=== PATIENT | female | born 1965 | race Caucasian/White ===

== ENCOUNTER 2020-09-04 13:10 | Outpatient (CLI) | payer OTHER, SELFPAY ==
--- NOTE | ~2020-09-04 | XR_ITS ---
EXAMINATION: XR foot RT min 3V DATE: 09/04/2020 13:30 INDICATION: Nontraumatic right foot pain TECHNIQUE: Standing dorsoplantar, two oblique and lateral views of the right foot were obtained. COMPARISON: None. FINDINGS: Mild hallux valgus with bunion with mild hypertrophic change at the medial head of the first metatars al. Mild pes planus with flattening of the longitudinal arch and mild hindfoot valgus. No fracture. M ild osteoarthritis at the first metatarsophalangeal and a few interphalangeal joints.. IMPRESSION: 1. Mild pes planus and mild hindfoot valgus. 2. Mild hallux valgus with bunion and mild osteoarthritis at the first metatarsophalangeal joint. Reviewed, dictated and finalized at location A. IMPRESSION: 1. Mild pes planus and mild hindfoot valgus. 2. Mild hallux valgus with bunion and mild osteoarthritis at the first metatars ophalangeal joint.
== END 2020-09-04 13:11 | disposition home or self-care (01) ==
LOC: ANHBWCIMG 13:11
PROVIDERS: PCP Family Medicine Adolescent Medicine; Visit Provider Orthopaedic Surgery
DX: M20.11 Hallux valgus (acquired), right foot (principal); M21.41 Flat foot [pes planus] (acquired), right foot
CPT/HCPCS: 73630

== ENCOUNTER 2022-08-23 03:23 | Day surgery (SDC) | payer OTHER, SELFPAY ==
[2022-07-12 14:46] VITALS: BMI 26.6
--- NOTE | 2022-08-16 08:49 | PC.NURSE ---
Pt updated with new procedure date/times. Confirmed no changes to home meds or health history since previous PAT call completed.
[2022-08-23 11:13] VITALS: BP 103/68; PULSE 79; RESP 18; TEMP 36.5; O2SAT 100
--- NOTE | 2022-08-23 11:16 | WPDANESEPPF ---
Anes - Initial Pre Proc Eval Procedure: Operation Date: 08/23/22 12:30 Proposed Procedures p Colonoscopy - Benjie Reese MD Date/Time: 08/23/22 11:16 Surgeon: Benjie Reese MD Pre Op Diagnosis: hx colon polyps Patient Data Age: 57 Gender: F Height: 1.57 m Weight: 64.3 kg Last Vital Signs Temp 97.7 F 08/23/22 11:13 Pulse 79 08/23/22 11:13 Resp 18 08/23/22 11:13 BP 103/68 08/23/22 11:13 Pulse Ox 100 08/23/22 11:13 O2 Del Method Room Air 08/23/22 11:13 Allergies Allergy/AdvReac Type Severity Reaction Status Date / Time No Known Allergies Allergy Verified 08/23/22 11:13 Home Medications Medication Instructions Recorded Confirmed Type calcium carbonate 600 mg-vitamin 1 tablet PO DAILY 09/05/20 08/16/22 History D3 1,000 unit-vitamin K2 90 mcg tab levothyroxine 100 mcg tablet 100 mcg PO DAILY #90 tabs 01/28/22 08/16/22 Rx estradiol 0.01% (0.1 mg/gram) 1 g vaginal DAILY #42.5 grams 06/05/22 08/16/22 Rx vaginal cream (Estrace) Patient hx anesthesia problems: none Family hx anesthesia problems: none Results Review: All pre-operative results and documents have been reviewed as part of the pre-operative evaluation. 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 Vertigo Surgical History Surgical History History of foot surgery 1979 Family History Family History Father Cerebrovascular accident Hypertension Arthritis Depression Mother Heart disease Hypertension Arthritis Grandparent Arthritis Grandparent Arthritis Sibling Depression Diabetes mellitus Sibling Depression Other Colon polyp High cholesterol Social History Social History Smoking status: Never smoker Second hand tobacco smoke exposure: No Alcohol intake: never Substance use: never Substance use type: does not use Living arrangements: with family Occupation/Education: occupation Gender identity (if verbalized by the patient): Female Sexual Orientation (if Verbalized by the Patient): Straight or Heterosexual Spiritual care concerns: No Agree to blood products: Yes Anes - Eval Final PreProcedure Day of Procedure 08/23/22 11:16 Patient weight: normal Heart: regular rate and rhythm Lungs: clear to auscultation Airway: Mallampati scale class II Neurological: alert and oriented Last oral intake: >/= 8 hours ASA classification: II Emergent: no Anesthetic plan: proceed Anesthesia type and monitoring: general GIVS and standard monitoring Results Review: All pre-operative results and documents have been reviewed as part of the pre-operative evaluation. Informed Consent: The patient's anesthetic plan and its attendant risks and benefits were discussed with the patient/family/POA. Questions were solicited and answers provided to the satisfaction of the patient/family/POA.
[2022-08-23] MEDS: LACTATED RINGERS 1,000 ML 150 ML IV CONT (11:20)
--- NOTE | 2022-08-23 11:27 | PM.HPGS ---
History of Present Illness History of Present Illness Consent: Risks, benefits, and alternatives have been discussed and questions answered. Patient agrees to proceed with procedure. Chief complaint: hx colon polyps Narrative: Sophia Madden is a 57 year old female with h/o colon polyp, last colonoscopy 4 years ago. Review of Systems Constitutional: Constitutional: Denies headache(s) and Denies weakness Eyes: Eyes: Denies blurry vision ENT: Reports Normal hearing present, Denies headache(s) and Denies neck pain Cardiovascular: Cardiovascular: Denies chest pain and Denies dyspnea Respiratory: Respiratory: Denies dyspnea Gastrointestinal: Gastrointestinal: Reports no additional gastrointestinal complaints Genitourinary: Genitourinary: Denies dysuria Musculoskeletal: Musculoskeletal: Denies neck pain Integumentary/Breasts: Skin/Breast: Denies dry skin Neurologic: Reports Normal hearing present, Denies headache(s) and Denies weakness Psychiatric: Psychiatric: Denies anxiety Endocrine: Endocrine: Denies change in body appearance Hematologic/Lymphatic: Hematologic/Lymphatic: Denies easy bleeding Allergic/Immunologic: Allergic/Immunologic: Denies urticaria PMF Past Medical History Medical History (Updated 08/23/22 @ 11:27 by Benjie Reese MD) Acquired hallux valgus of left foot Adenomatous colon polyp Anxiety Hallux valgus (acquired), right foot Hypothyroidism Metatarsalgia of right foot 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 Vertigo Surgical History Surgical History History of foot surgery 1979 Family History Family History Father Cerebrovascular accident Hypertension Arthritis Depression Mother Heart disease Hypertension Arthritis Grandparent Arthritis Grandparent Arthritis Sibling Depression Diabetes mellitus Sibling Depression Other Colon polyp High cholesterol Social History Social History Smoking status: Never smoker Second hand tobacco smoke exposure: No Alcohol intake: never Substance use: never Substance use type: does not use Living arrangements: with family Occupation/Education: occupation Gender identity (if verbalized by the patient): Female Sexual Orientation (if Verbalized by the Patient): Straight or Heterosexual Spiritual care concerns: No Agree to blood products: Yes Meds Home Medications and Allergies Home Medications Medication Instructions Recorded Confirmed Type calcium carbonate 600 mg-vitamin 1 tablet PO DAILY 09/05/20 08/16/22 History D3 1,000 unit-vitamin K2 90 mcg tab levothyroxine 100 mcg tablet 100 mcg PO DAILY #90 tabs 01/28/22 08/16/22 Rx estradiol 0.01% (0.1 mg/gram) 1 g vaginal DAILY #42.5 grams 06/05/22 08/16/22 Rx vaginal cream (Estrace) Allergies Allergy/AdvReac Type Severity Reaction Status Date / Time No Known Allergies Allergy Verified 08/23/22 11:13 Vital Signs Vital Signs - 24 hr 08/23/22 11:13 Temperature 97.7 F Pulse Rate 79 Respiratory Rate 18 Blood Pressure 103/68 Pulse Oximetry 100 Oxygen Delivery Room Air Exam Const: General: comfortable and no acute distress HENMT: Face/Nose/Sinus: Normal nares present Eyes: General: appearance normal, both eyes and all related structures Neck: Neck: no JVD Resp: Auscultation: clear to auscultation bilaterally Cardio: Rate: regular rate Rhythm: regular rhythm GI: Inspection: non-distended GI Palp: Yes Soft to palpation Skin: General skin exam: normal color Neuro: General: gait normal Speech: normal speech Extrem: General: normal to inspection Psych: Mental Status: mental status grossly normal Assessment and Plan Assessment and plan (1) Adenomatous colon polyp: Code(s): D12.6 - Benign neoplasm
[2022-08-23 12:26] VITALS: BP 89/57; PULSE 72; RESP 17; O2SAT 97
[2022-08-23 12:36] VITALS: BP 90/58; PULSE 69; RESP 17; O2SAT 98
[2022-08-23 12:46] VITALS: BP 108/73; PULSE 81; RESP 23; O2SAT 99
== END 2022-08-23 12:57 | disposition home or self-care (01) ==
PROVIDERS: PCP Family Medicine Adolescent Medicine; Visit Provider Internal Medicine Gastroenterology
PROC: 0DJD8ZZ Inspection of Lower Intestinal Tract, Via Natural or Artificial Opening Endoscopic (ICD-10-PCS; CPT 45378; principal; 2022-08-23 12:30)
DX: Z12.11 Encounter for screening for malignant neoplasm of colon (principal); K64.8 Other hemorrhoids; Z86.010 Personal history of colon polyps; E03.9 Hypothyroidism, unspecified
CPT/HCPCS: 45378; J2704; J7120

== ENCOUNTER 2022-09-02 15:19 | Outpatient (CLI) | payer OTHER, SELFPAY ==
--- NOTE | ~2022-09-02 | US_ITS ---
EXAMINATION: US pelvic complete w TV DATE: 09/02/2022 16:07 INDICATION: POST MENOPAUSAL BLEEDING TECHNIQUE: Multiple transabdominal and endovaginal sonographic images of the pelvis were obtained. COMPARISON: None. FINDINGS: Uterus: 7.9 x 3.9 x 4.7 cm. Endometrial complex measures 3 mm. Right Ovary: 2.0 x 1.6 x 1.9 cm. Vascular flow is present. Left Ovary: 2.2 x 1.5 x 2.3 cm. Vascular flow is present. There is no free fluid in the pelvis. IMPRESSION: Normal pelvic sonogram findings. Reviewed, dictated and finalized at location K.
== END 2022-09-02 15:20 | disposition home or self-care (01) ==
PROVIDERS: PCP Family Medicine Adolescent Medicine; Visit Provider Obstetrics & Gynecology Gynecology
DX: N95.0 Postmenopausal bleeding (principal)
CPT/HCPCS: 76830; 76856

== ENCOUNTER 2022-09-19 11:20 | Outpatient (CLI) | payer OTHER, SELFPAY ==
--- NOTE | ~2022-09-19 | MMUS_ITS ---
EXAMINATION: MM diagnostic malcom BI w layne, US breast BI limited HISTORY: Bilateral breast pain TECHNIQUE: Craniocaudal, mediolateral, and mediolateral oblique 3-D tomosynthesis images of the breas ts were performed and synthetic 2-D images were generated. CAD analysis was submitted and interpreted . High resolution limited bilateral breast ultrasound was performed. COMPARISON: No prior mammogram is currently available for comparison. FINDINGS: MAMMOGRAPHIC FINDINGS: No suspicious mass, calcification, or architectural distortion are identified in either breast to sug gest malignancy. No mammographic correlate is identified for the patient's reported breast pain. ULTRASOUND: There is no evidence of focal abnormal solid or cystic mass in the vicinity of the patient's reported bilateral breast pain. IMPRESSION: 1. No specific mammographic or sonographic correlate is identified for the patient's reported bilater al breast pain. Further evaluation at this time should be based on clinical assessment. Continued fol low-up physical examination is recommended. 2. Recommend routine screening mammography in one year. BI-RADS Category 1: Negative Reviewed, dictated and finalized at location A. IMPRESSION: 1. No specific mammographic or sonographic correlate is identified for the eusebio ent's reported bilateral breast pain. Further evaluation at this time should be based on clinical assessment. Continued follow-up physical examination is elmer mmended. 2. Recommend routine screening mammography in one year. BI-RADS Category 1: Negative
== END 2022-09-19 11:21 | disposition home or self-care (01) ==
PROVIDERS: PCP Family Medicine Adolescent Medicine; Visit Provider Obstetrics & Gynecology Gynecology
DX: N64.4 Mastodynia (principal)
CPT/HCPCS: 76642; 77062; 77066; G0279

== ENCOUNTER 2022-10-16 15:48 | Outpatient (CLI) | payer OTHER, SELFPAY ==
--- NOTE | ~2022-10-16 | DEXA_ITS ---
Bone Density Report Name: KATT ANDERSON Age: 57 Sex: Female Ethnicity: White Date of : 1965 Indication: postmenopausal; screening for osteoporosis; Referring Provider: HONG, MEET Study: Bone densitometry was performed. Exam Date: October 16, 2022 Accession number: [id number] Bone Density: Region BMD T-score Z-score Classification AP Spine(L1-L4) 1.007 -0.4 0.9 Normal Femoral Neck (Left) 0.921 0.6 1.8 Normal Total Hip (Left) 1.065 1.0 1.8 Normal Femoral Neck (Right) 0.853 0.0 1.2 Normal Total Hip (Right) 1.076 1.1 1.9 Normal Total Hip Mean 1.071 1.1 1.9 Normal World Health Organization criteria for BMD impression classify patients as: Normal (T-score at or above -1.0), Osteopenia (T-score between -1.0 and -2.5), or Osteoporosis (T-score at or below -2.5). 10-year Fracture Risk: FRAX not reported because: All T-scores for Spine Total, Hip Total, Femoral Neck at or above -1.0 Clinical Information Provided by Patient: Patient maximum height was 63 Menopause Age: 57 No regular weight bearing exercise Drinks caffeinated beverages Onset of menses at age 15 Number of children 3 Impression: The patient has normal bone mass. Discussion: BONE DENSITY IS ABOVE THE MINIMUM DESIRABLE LEVEL AT ALL SKELETAL SITES TESTED. This patient?s bone mineral density is above the minimum desirable level (T-score -1.0 or better) at all sites measured. The patient should follow a healthful lifestyle (good nutrition with adequate calcium and vitamin D, and appropriate weight-bearing exercise). Follow-Up: Consider repeating this study in 5 years or sooner if there is some new clinical indication. Reported by: BRIAN on 10/18/2022 9:29:00 AM. Reviewed, dictated and finalized at location A. [facility]
--- NOTE | ~2022-10-16 | DEXA_ITS ---
Bone Density Report Name: KATT ANDERSON Age: 57 Sex: Female Ethnicity: White Date of : 1965 Indication: postmenopausal; screening for osteoporosis; Referring Provider: HONG, MEET Study: Bone densitometry was performed. Exam Date: October 16, 2022 Accession number: [id number] Bone Density: Region BMD T-score Z-score Classification AP Spine(L1-L4) 1.007 -0.4 0.9 Normal Femoral Neck (Left) 0.921 0.6 1.8 Normal Total Hip (Left) 1.065 1.0 1.8 Normal Femoral Neck (Right) 0.853 0.0 1.2 Normal Total Hip (Right) 1.076 1.1 1.9 Normal Total Hip Mean 1.071 1.1 1.9 Normal World Health Organization criteria for BMD impression classify patients as: Normal (T-score at or above -1.0), Osteopenia (T-score between -1.0 and -2.5), or Osteoporosis (T-score at or below -2.5). 10-year Fracture Risk: FRAX not reported because: All T-scores for Spine Total, Hip Total, Femoral Neck at or above -1.0 Clinical Information Provided by Patient: Patient maximum height was 63 Menopause Age: 57 No regular weight bearing exercise Drinks caffeinated beverages Onset of menses at age 15 Number of children 3 Impression: The patient has normal bone mass. Discussion: BONE DENSITY IS ABOVE THE MINIMUM DESIRABLE LEVEL AT ALL SKELETAL SITES TESTED. This patient?s bone mineral density is above the minimum desirable level (T-score -1.0 or better) at all sites measured. The patient should follow a healthful lifestyle (good nutrition with adequate calcium and vitamin D, and appropriate weight-bearing exercise). Follow-Up: Consider repeating this study in 5 years or sooner if there is some new clinical indication. Reported by: BRIAN on 10/16/2022 3:27:00 PM. Reviewed, dictated and finalized at location A.
== END 2022-10-16 15:49 | disposition home or self-care (01) ==
PROVIDERS: PCP Family Medicine Adolescent Medicine; Visit Provider Nurse Practitioner
DX: Z78.0 Asymptomatic menopausal state (principal)
CPT/HCPCS: 77080